=== PATIENT | male | born 1970 | race Two or more races ===

== ENCOUNTER 2018-11-14 17:54 | Emergency (ER) | payer OTHER ==
[2018-11-14 18:00] VITALS: BP 146/95; PULSE 73; TEMP 98.4; BMI 27.4
[2018-11-14] MEDS ORDERED: IBUPROFEN 400 MG TABLET (FP) PO ONE ×2 (18:24→18:26)
[2018-11-14] MEDS ORDERED: CYCLOBENZAPRINE HCL 10 MG TABLET (FP) PO ONE (18:24)
[2018-11-14] MEDS ORDERED: CYCLOBENZAPRINE HCL 10 MG TABLET (FP) ONE (18:27)
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
== END 2018-11-14 18:32 | disposition home or self-care (01) ==
LOC: JERFT 17:54
DX: S13.4XXA Sprain of ligaments of cervical spine, initial encounter (principal); V49.49XA Driver injured in collision with other motor vehicles in traffic accident, initial encounter; Y92.414 Local residential or business street as the place of occurrence of the external cause; Y93.89 Activity, other specified; Y99.8 Other external cause status
CPT/HCPCS: 99281-25

== ENCOUNTER 2022-05-18 09:30 | Inpatient (IN) | payer OTHER ==
[2022-05-18 11:04] LABS: BASO % 0.7 % (0-2.0); EOS % 1.9 % (0-4.5); HEMATOCRIT 39.6 % (35.4-49); HEMOGLOBIN 12.8 GM/dL (11.7-16.9); LYMPH % 45.7 % (8-40); MCH 27.6 pg (25.7-33.7); MCHC 32.3 g/dl (32.0-35.9); MEAN CELL VOLUME 85.5 fl (80-96); MONO % 6.4 % (3.8-10.2); NEUT % 45.3 % (42.8-82.8); PLATELET COUNT 230 10^3/uL (134-434); RBC 4.64 M/mm3 (4.00-5.60); RDW 14.6 % (11.9-15.9); WHITE BLOOD COUNT 4.7 K/mm3 (4.0-10.0)
[2022-05-18 11:20] LABS: CALCIUM 9.1 mg/dL (8.5-10.1)
[2022-05-18 11:22] LABS: ALBUMIN 3.9 g/dl (3.4-5.0); BLOOD UREA NITROGEN 9.8 mg/dL (7-18)
[2022-05-18 11:24] LABS: CREATININE 1.1 mg/dL (0.55-1.3)
[2022-05-18 11:26] LABS: BILIRUBIN,TOTAL 0.8 mg/dL (0.2-1); TOT PROT 7.5 g/dl (6.4-8.2)
[2022-05-18 11:37] LABS: INR 0.99 (0.83-1.09); PROTHROMBIN TIME (PATIENT) 11.4 SEC (9.7-13.0)
[2022-05-18] MEDS ORDERED: ATORVASTATIN CA 80 MG TABLET (FP) PO ONE (11:39)
[2022-05-18] MEDS ORDERED: ASPIRIN 81 MG CHEWABLE TABLETS PO ONE (11:39)
[2022-05-18 11:40] LABS: ACTIVATED PTT 27.5 SECONDS (25.2-36.5)
[2022-05-18] MEDS ORDERED: ATORVASTATIN CA 80 MG TABLET (FP) ONE (11:47)
[2022-05-18] MEDS ORDERED: ASPIRIN 81 MG CHEWABLE TABLETS ONE (11:47)
[2022-05-18 12:39] LABS: URINE APPEARANCE CLEAR; URINE BILIRUBIN NEGATIVE (NEGATIVE); URINE COLOR YELLOW; URINE GLUCOSE (UA) NEGATIVE (NEGATIVE); URINE KETONE NEGATIVE (NEGATIVE); URINE LEUK ESTERASE NEGATIVE (NEGATIVE); URINE NITRITE NEGATIVE (NEGATIVE); URINE PROTEIN NEGATIVE (NEGATIVE); URINE UROBILINOGEN 0.2 mg/dL (0.2-1.0)
[2022-05-19 16:27] VITALS: BMI 28.3
[2022-05-19] MEDS: ATORVASTATIN CA 20 MG TABLET (FP) PO SCH (21:06)
[2022-05-20 07:49] LABS: BASO % 0.9 % (0-2.0); EOS % 2.5 % (0-4.5); HEMATOCRIT 39.1 % (35.4-49); HEMOGLOBIN 12.9 GM/dL (11.7-16.9); MCH 28.1 pg (25.7-33.7); MCHC 33.1 g/dl (32.0-35.9); MEAN CELL VOLUME 84.7 fl (80-96); MONO % 7.6 % (3.8-10.2); PLATELET COUNT 227 10^3/uL (134-434); RBC 4.61 M/mm3 (4.00-5.60); RDW 14.7 % (11.9-15.9); WHITE BLOOD COUNT 4.4 K/mm3 (4.0-10.0)
[2022-05-20 07:53] LABS: CALCIUM 8.2 mg/dL (8.5-10.1)
[2022-05-20 07:54] LABS: ALBUMIN 3.5 g/dl (3.4-5.0); BLOOD UREA NITROGEN 13.1 mg/dL (7-18)
[2022-05-20 07:58] LABS: TOT PROT 7.1 g/dl (6.4-8.2)
[2022-05-20] MEDS: ASPIRIN 81 MG CHEWABLE TABLETS PO SCH (09:57)
[2022-05-20] MEDS: ENOXAPARIN NA (PORCINE) 40 MG/0.4 ML DISP.SYRIN SQ SCH (09:57)
[2022-05-20] MEDS: ATORVASTATIN CA 20 MG TABLET (FP) PO SCH (21:07)
[2022-05-21 03:33] VITALS: RESP 18
[2022-05-21] MEDS: ASPIRIN 81 MG CHEWABLE TABLETS PO SCH (10:10)
[2022-05-21] MEDS: ENOXAPARIN NA (PORCINE) 40 MG/0.4 ML DISP.SYRIN SQ SCH (10:10)
[2022-05-21 11:27] VITALS: BP 146/94; PULSE 61; TEMP 97.9
== END 2022-05-21 13:47 | disposition home or self-care (01) | DRG 65 ==
LOC: JER 09:30 → JERBED 16:03 → J4W 05-19 15:29
PROVIDERS: ADMIT Internal Medicine; ATTEND Internal Medicine
DX: I63.9 Cerebral infarction, unspecified (principal); I69.351 Hemiplegia and hemiparesis following cerebral infarction affecting right dominant side; I10 Essential (primary) hypertension
CPT/HCPCS: 36415; 70450-TC; 70551-TC; 80053; 80061; 81003; 82962; 83036; 85025; 85610; 85730; 86850; 86900; 86901; 93005; 93010; 93306-TC; 93880-TC; 97116-GP; 97161-GP; 99285-25; C9803-CS; U0003; U0005

== ENCOUNTER 2024-10-28 08:36 | Emergency (ER) | payer OTHER ==
[2024-10-28 08:45] VITALS: BP 146/91; PULSE 75; RESP 18; TEMP 98.4; BMI 24.6
[2024-10-28] MEDS: LIDOCAINE 5% TOPICAL PATCH TP ONE (09:26)
[2024-10-28] MEDS: ACETAMINOPHEN 500 MG TABLET (FP) PO ONE (09:27)
[2024-10-28] MEDS ORDERED: ACETAMINOPHEN 500 MG TABLET (FP) ONE (09:27)
[2024-10-28] MEDS ORDERED: LIDOCAINE 5% TOPICAL PATCH ONE (09:28)
[2024-10-28] MEDS ORDERED: LIDOCAINE PATCH REMOVAL MC ONE (22:00)
== END 2024-10-28 11:51 | disposition home or self-care (01) ==
LOC: JERFT 08:36
DX: M54.2 Cervicalgia (principal); M54.50 Low back pain, unspecified; V43.52XA Car driver injured in collision with other type car in traffic accident, initial encounter; Y92.410 Unspecified street and highway as the place of occurrence of the external cause
CPT/HCPCS: 72040-TC; 72100-TC-FY; 73030-TC-RT-FY; 99283-25